=== PATIENT | female | born 1940 | race Caucasian/White ===

== ENCOUNTER 2017-05-22 11:49 | Emergency (ER) | payer MEDICARE, BC ==
[~2017-05-22] VITALS: Ht 167.6 cm; Wt 85.0 kg
[~2017-05-22 11:49] MED LIST: ASPI325T4 PO; ATEN50TA PO; ATOR20TA17 PO; CHOL20002 PO; CLOP75TA27 PO; ESOM40CA PO; MAGN71.5 PO; OMEG100011 PO; PREM3 PO; UBID50TA PO
[2017-05-22 11:52] VITALS: Ht 167.6 cm; Wt 85.0 kg
[2017-05-22] MEDS ORDERED: KETOROLAC 30 MG INJ IM STA (12:56)
--- NOTE | 2017-05-22 13:42 | ERD ---
ER Documentation Chief Complaint Date/Time DATE: 05/22/17 TIME: 13:38 Chief Complaint PAIN BEHING LT KNEE SINCE MORNING , NO TRAUMA HPI This is a 76-year-old female presenting to emergency department for left knee pain starting earlier today. Patient states she was ambulating when suddenly she stepped down on her left foot developed sudden onset left knee pain. Patient states pain is mainly to behind her left knee and medial aspect. No calf tenderness, swelling or erythema. No numbness or tingling. No loss of sensation. No back pain or chest pain. Patient did not take medication at home for this. Patient has had a DVT and PE in the past and is on Eliquis for atrial fibrillation.No shortness of breath or difficulty breathing. No chest pain or chest wall pain. No palpitations. ROS All systems reviewed and are negative except as per history of present illness. Medications Home Meds Active Scripts Hydrocodone/Acetaminophen ([place] 5-325 Tablet) 1 Each Tablet, 1 TAB PO Q6H Y for PAIN, #7 TAB Prov:ZELDA GARNER NP 05/22/17 Ibuprofen* (Motrin*) 600 Mg Tab, 600 MG PO Q6, #20 TAB Prov:ZELDA GARNER NP 05/22/17 Reported Medications Clopidogrel Bisulfate (Clopidogrel) 75 Mg Tablet, 75 MG PO DAILY, TAB 09/09/14 Durand-3 Fatty Acids/Fish Oil* (Fish Oil *) 1,000 Mg Capsule, 1000 MG PO BID, CAP 09/09/14 Estrogens Conjugated* (Premarin*) 0.3 Mg Tablet, 0.3 MG PO every other day, TAB 09/09/14 Magnesium Chloride* (Slow-Mag*) 64 Mg Tablet.sa, 64 MG PO BID, TAB.SA 05/13/14 Ubidecarenone (COQ10) 50 Mg Tab.chew, 100 MG PO DAILY, TAB.CHEW 05/13/14 Cholecalciferol (Vitamin D3) 2,000 Unit Tablet, 2000 UNIT PO DAILY 11/23/12 Aspirin* (Aspirin*) 325 Mg Tablet, 325 MG PO DAILY 11/23/12 Atorvastatin (Lipitor) 20 Mg Tablet, 20 MG PO DAILY 11/23/12 Esomeprazole Mag Trihydrate (Nexium) 40 Mg Capsule.dr, 40 MG PO DAILY 11/23/12 Atenolol* (Atenolol*) 50 Mg Tablet, 50 MG PO BID 11/23/12 Allergies Allergies: Coded Allergies: morphine (Verified Allergy, Intermediate, ANAPHYLAXIS, 09/09/14) Penicillins (Verified Allergy, Mild, RASH, 09/09/14) codeine (Verified Allergy, Mild, RASH, 09/09/14) PMhx/Soc History of Surgery: Yes (SPINAL FUSION,HYSTERECTOMY,CARPAL TUNNEL;2X CSECTION, CHOLECYSTECTOMY ) Hx Neurological Disorder: Yes (SEIZURES) Hx Respiratory Disorders: No Hx Cardiac Disorders: Yes (HTN; AFIB) Hx Psychiatric Problems: No Hx Miscellaneous Medical Probl: No (FIBROMYALGIA; ARTHRITIS;FAMILIAL TREMORS; HIGH CHOL) Hx Alcohol Use: Yes (WINE ) Hx Substance Use: No Hx Tobacco Use: Yes Smoking Status: Current every day smoker Physical Exam Vitals Vital Signs Date Time Temp Pulse Resp B/P Pulse Ox O2 Delivery O2 Flow Rate FiO2 05/22/17 11:52 97.9 70 18 184/85 98 Physical Exam Const: No acute distress, alert Head: Atraumatic Eyes: Normal Conjunctiva ENT: Normal External Ears, Nose and Mouth. Neck: Full range of motion..~ No meningismus. Resp: Clear to auscultation bilaterally Cardio: irregularly irregular rhythm, no murmurs Abd: Soft, non tender, non distended. Normal bowel sounds Skin: No petechiae or rashes Back: No midline or flank tenderness Ext: swelling to medial aspect and posterior aspect of left knee. Pedal pulses 2+ to left foot. Can dorsiflex and plantar flex left foot without discomfort. Sensation fully intact. Neur: Awake and alert Psych: Normal Mood and Affect Results 24 hrs Current Medications Medications (Trade) Dose Ordered Sig/Kavita Route PRN Reason Start Time Stop Time Status Last Admin Dose Admin Ketorolac Tromethamine (Toradol) 30 mg ONCE STAT IM 05/22/17 12:56 05/22/17 12:58 DC 05/22/17 13:21 Procedures/[place] [id number] Radiology Main Line: [phone] DIAGNOSTIC IMAGING REPORT Patient: NOEMI MURO : 1940 Age: 76 Sex: F MR #: [id number] DOS: 05/22/17 1256 Ordering MD: ZELDA GARNER NP Location: [facility] Room/Bed: PROCEDURE: US Lower extremity Venous. CLINICAL INDICATION: Left leg edema, pain TECHNIQUE: Multiple sonographic images of the left lower extremity deep venous system was obtained utilizing grayscale, color-flow, compressive sonography and doppler imaging with augmentation. The images were reviewed on a PACS workstation. COMPARISON: None. FINDINGS: There is normal compressibility and flow within the left common femoral, femoral , posterior tibial, peroneal and popliteal veins. RPTAT: AA IMPRESSION: No sonographic evidence for deep venous thrombosis. [place] [id number] Radiology Main Line: [phone] DIAGNOSTIC IMAGING REPORT Patient: NOEMI MURO : 1940 Age: 76 Sex: F MR #: [id number] DOS: 05/22/17 1256 Ordering MD: ZELDA GARNER NP Location: [facility] Room/Bed: PROCEDURE: XR Knee. CLINICAL INDICATION: Left knee pain TECHNIQUE: 3 images of the left knee are available for review. COMPARISON: None available FINDINGS: There is no acute fracture. Alignment is normal. There is mild tricompartmental osteoarthrosis. There is a small knee joint effusion. IMPRESSION: 1. No radiographic evidence of acute osseous abnormality. 2. Mild tricompartmental osteoarthrosis and small knee joint effusion. MDM: This is a 76-year-old female presenting to emergency department for left knee pain from earlier today. Patient states she is ambulating when suddenly she felt sudden sharp pain to posterior and medial aspect of left knee. Rating pain 6/10. X-ray left knee reviewed by radiologist as. Ultrasound left leg reviewed by radiologist as. Patient given Toradol 30 mg IM while in the ED. Patient is currently taking Eliquis for atrial fibrillation and states she had a previous DVT and PE. Denies any shortness breath or difficulty breathing. Vital signs are stable. Venous ultrasound of left lower extremity reviewed by radiologist as No sonographic evidence for deep venous thrombosis X-ray left knee reviewed by radiologist as no radiographic evidence of acute osseous abnormality. Mild tricompartmental osteoarthritis and small knee joint effusion. Low suspicion for acute dislocation, fracture or DVT. Patient is appropriate for outpatient management will be given prescription for ibuprofen 600 mg #20 and Kend[place] 5/325mg #7. Instructed patient to follow-up with primary care provider in the next 2-3 days for reassessment. Return to ED for any high fever, chest pain, difficulty breathing, shortness breath, wheezing , vomiting, diarrhea, abdominal pain or any new or worsening symptoms. Patient verbalizes understanding. All questions answered at discharge. Disclaimer: Inadvertent spelling and grammatical errors are likely due to EHR/ dictation software use and do not reflect on the overall quality of patient care. Also, please note that the electronic time recorded on this note does not necessarily reflect the actual time of the patient encounter. Departure Diagnosis: Primary Impression: Knee pain Chronicity: acute Laterality: left Qualified Code: M25.562 - Acute pain of left knee Condition: Stable ZELDA GARNER NP May 22, 2017 13:42
--- NOTE | 2017-05-22 15:20 | RADRPT ---
PROCEDURE: US Lower extremity Venous. CLINICAL INDICATION: Left leg edema, pain TECHNIQUE: Multiple sonographic images of the left lower extremity deep venous system was obtained utilizing grayscale, color-flow, compressive sonography and doppler imaging with augmentation. The images were reviewed on a PACS workstation. COMPARISON: None. FINDINGS: There is normal compressibility and flow within the left common femoral, femoral, posterior tibial, peroneal and popliteal veins. RPTAT: AA IMPRESSION: No sonographic evidence for deep venous thrombosis. .Diego Duarte MD, MD Date Time Electronically viewed and signed by .Diego Duarte MD, on 05/22/2017 15:19 .S/
--- NOTE | 2017-05-22 15:22 | RADRPT ---
PROCEDURE: XR Knee. CLINICAL INDICATION: Left knee pain TECHNIQUE: 3 images of the left knee are available for review. COMPARISON: None available FINDINGS: There is no acute fracture. Alignment is normal. There is mild tricompartmental osteoarthrosis. There is a small knee joint effusion. IMPRESSION: 1. No radiographic evidence of acute osseous abnormality. 2. Mild tricompartmental osteoarthrosis and small knee joint effusion. RPTAT: UU .Garth Crespo MD, MD Date Time Electronically viewed and signed by .Garth Crespo MD, MD on 05/22/2017 15:21 .K/
[2017-05-22] MEDS ORDERED: IBUP-1542 PO (15:27)
[2017-05-22] MEDS ORDERED: HYDR-906 PO (15:34)
== END 2017-05-22 15:50 | disposition home or self-care (01) ==
LOC: FTE 11:49
DX: M25.562 Pain in left knee (principal); I10 Essential (primary) hypertension; F17.210 Nicotine dependence, cigarettes, uncomplicated; Z79.01 Long term (current) use of anticoagulants; Z79.82 Long term (current) use of aspirin
CPT/HCPCS: 73562; 93971; 96372; 99284; J1885

== ENCOUNTER → 2019-01-15 | Outpatient (CLI) | payer MEDICARE, BC ==
[~2019-01-15] MED LIST changes: +ASPI325T30 PO; -ASPI325T4 PO; +HYDR-4011 PO; +IBUP-1542 PO
== END | disposition home or self-care (01) ==
LOC: VAS 09:46
PROVIDERS: ATTEND Family Medicine Adult Medicine
DX: I82.401 Acute embolism and thrombosis of unspecified deep veins of right lower extremity (principal)
CPT/HCPCS: 93971